=== PATIENT | female | born 1995 | race Caucasian/White ===

== ENCOUNTER 2018-08-08 08:39 | Outpatient (CLI) | payer OTHER ==
[2018-08-08 09:04] LABS: BASOPHILS % 1.2 % (0.0-1.5); EOSINOPHILS % 2.1 % (0.0-6.8); MEAN CORPUSCULAR HEMOGLOBIN 28.9 pg (28.0-34.0); MONOCYTES % 5.9 % (0.0-11.0); NEUTROPHILS # 4.9 # k/uL (1.4-7.7)
[2018-08-08 09:17] LABS: eGFR (Non-African) > 60
== END 2018-08-08 08:41 ==
LOC: LAB 08:39
PROVIDERS: ATTEND Family Medicine
DX: R63.4 Abnormal weight loss (principal)
CPT/HCPCS: 36415; 80053; 84443; 85025